=== PATIENT | female | born 1935 | race Two or more races ===

== ENCOUNTER 2018-12-16 11:54 | Inpatient (IN) | payer MEDICARE, OTHER, MEDICAID ==
[2018-12-16] MEDS: morphine 2 MG INJ IV ×2 (12:12→12:40)
[2018-12-16 12:31] LABS: ADD MAN DIFF? NO
[2018-12-16 12:33] LABS: BASOPHIL # 0.1 10^3/ul (0.0-0.1); BASOPHILS % 0.4 % (0.0-2.0); EOSINOPHILS # 0.2 10^3/ul (0.0-0.5); EOSINOPHILS % 1.1 % (0.0-7.0); HEMATOCRIT 41.6 % (37.0-47.0); HEMOGLOBIN 12.9 g/dl (12.0-16.0); LYMPHOCYTES # 1.8 10^3/ul (0.8-2.9); LYMPHOCYTES % 12.9 % (15.0-51.0); MEAN CORPUSCULAR HEMOGLOBIN 25.8 pg (29.0-33.0); MEAN CORPUSCULAR VOLUME 83.2 fl (82.0-101.0); MEAN PLATELET VOLUME 10.4 fl (7.4-10.4); MONOCYTE # 0.6 10^3/ul (0.3-0.9); MONOCYTES % 4.5 % (0.0-11.0); NEUTROPHILS % 80.2 % (39.0-77.0); PLATELET COUNT 391 10^3/UL (140-415); RED CELL DISTRIBUTION WIDTH 17.8 % (11.5-14.5)
[2018-12-16 12:33] LABS: WHITE BLOOD COUNT 13.8 10^3/ul (4.8-10.8)
[2018-12-16] MEDS: MAGNESIUM SULFATE 2 GM/50 ML 50 ML IVPB (12:34)
[2018-12-16] MEDS: ONDANSETRON 4 MG INJ IV (12:34)
[2018-12-16] MEDS: FUROSEMIDE 20 MG INJ IV (12:35)
[2018-12-16] MEDS: NITROGLYCERIN 2% 1 GM OINT PKT TD (12:35)
[2018-12-16] MEDS: ASPIRIN 81 MG TAB PO (12:35)
[2018-12-16] MEDS: DEXAMETHASONE 10 MG/ML 1 ML INJ IV (12:35)
[2018-12-16] MEDS: ALBUTEROL 0.5% (NEB) 2.5 MG/0.5 ML AMP INH (12:36)
[2018-12-16 12:51] LABS: ALANINE AMINOTRANSFERASE 22 IU/L (13-69); ALBUMIN 4.2 g/dl (3.3-4.9); ALKALINE PHOSPHATASE 77 IU/L (42-121); ANION GAP 12 (5-13); ASPARTATE AMINO TRANSFERASE 26 IU/L (15-46); BILIRUBIN,INDIRECT 0.4 mg/dl (0-1.1); BILIRUBIN,TOTAL 0.4 mg/dl (0.2-1.3); BLOOD UREA NITROGEN 15 mg/dl (7-20); CARBON DIOXIDE 27 mmol/L (21-31); CHLORIDE 102 mmol/L (97-110); CREATININE 1.09 mg/dl (0.44-1.00); GLUCOSE 238 mg/dl (70-220); POTASSIUM 4.4 mmol/L (3.5-5.1); SODIUM 141 mmol/L (135-144)
[2018-12-16 12:52] LABS: INR 0.93; PROTIME 12.6 Sec (11.9-14.9)
[2018-12-16 12:53] LABS: PARTIAL THROMBOPLASTIN TIME 22.6 Sec (23.0-35.0)
[2018-12-16 13:02] LABS: TROPONIN-I < 0.012 ng/ml (0.000-0.120)
[2018-12-16 13:22] LABS: B-TYPE NATRIURETIC PEPTIDE 1530 PG/ML (0-450)
[2018-12-16] MEDS ORDERED: GLUCAGON 1 MG INJ IM (18:30)
[2018-12-16] MEDS ORDERED: GLUCOSE GEL 15 GRAM TUBE BUCCAL (18:30)
[2018-12-16] MEDS ORDERED: GLUCOSE GEL 15 GRAM TUBE PO ×2 (18:30)
[2018-12-16] MEDS: DEXTROSE 5%-0.45% NACL 1,000 ML IV (18:30)
[2018-12-16] MEDS ORDERED: DEXTROSE 50% 50 ML SYRINGE IV ×2 (18:30)
[2018-12-16] MEDS: INSULIN ASPART [NOVOLOG] 3 ML PEN SC ×2 (18:34→21:19)
[2018-12-16 19:21] LABS: CREATINE KINASE 58 IU/L (23-200)
[2018-12-16 19:33] LABS: CK INDEX 1.1; CK-MB 0.66 ng/ml (0.0-2.4); TROPONIN-I 0.028 ng/ml (0.000-0.120)
[2018-12-16] MEDS: CILOSTAZOL 100 MG TAB PO (20:14)
[2018-12-16] MEDS ORDERED: DORZOLAMIDE/TIMOLOL 10 ML OPH BOTH EYES (21:00)
[2018-12-16] MEDS: DORZOLAMIDE/TIMOLOL/PF 0.2 ML DROPERETTE BOTH EYES (21:16)
[2018-12-16 21:43] LABS: AADO2 Arterial 187.1 mmHg (7.0-24.0); Allen Test ACCEPTAB; Arterial Base Excess 3.6 mmol/L (-3.0-3); Arterial Blood Gas Oxygen Sat 98.6 mmHG (95.0-100.0); Arterial COHb 0.3 % (0.0-3.0); Arterial Fraction of Oxyhgb 97.8 % (93.0-99.0); Arterial HCO3 27.5 mmol/L (22.0-26.0); Arterial MetHb 0.5 % (0.0-1.5); Arterial pCO2 38.9 mmhg (35-45); Blood Gas IEPAP 15/5; Blood Gas PS 10; MODE MASK - BIPAP; Site Right Radial
[2018-12-17] MEDS: INSULIN ASPART [NOVOLOG] 3 ML PEN SC ×2 (00:54→04:33)
[2018-12-17 01:34] LABS: CREATINE KINASE 50 IU/L (23-200)
[2018-12-17 01:56] LABS: CK INDEX 1.1; CK-MB 0.53 ng/ml (0.0-2.4)
[2018-12-17 05:17] LABS: ADD MAN DIFF? NO
[2018-12-17 05:21] LABS: BASOPHILS % 0.1 % (0.0-2.0); HEMOGLOBIN 11.4 g/dl (12.0-16.0); LYMPHOCYTES # 0.7 10^3/ul (0.8-2.9); LYMPHOCYTES % 7.7 % (15.0-51.0); MEAN CORPUSCULAR HEMOGLOBIN 25.5 pg (29.0-33.0); MEAN CORPUSCULAR HGB CONC 31.7 g/dl (32.0-37.0); MEAN CORPUSCULAR VOLUME 80.5 fl (82.0-101.0); MEAN PLATELET VOLUME 10.7 fl (7.4-10.4); MONOCYTE # 0.4 10^3/ul (0.3-0.9); MONOCYTES % 5.1 % (0.0-11.0); NEUTROPHIL # 7.3 10^3/ul (1.6-7.5); NEUTROPHILS % 86.5 % (39.0-77.0); PLATELET COUNT 316 10^3/UL (140-415); RED BLOOD COUNT 4.47 10^6/ul (4.20-5.40); RED CELL DISTRIBUTION WIDTH 17.9 % (11.5-14.5)
[2018-12-17 05:21] LABS: WHITE BLOOD COUNT 8.4 10^3/ul (4.8-10.8)
[2018-12-17 05:45] LABS: CHOLESTEROL 87 mg/dl (100-200)
[2018-12-17 05:45] LABS: CHOL/HDL RATIO 1.7 RATIO; HDL CHOLESTEROL 50 mg/dl (33-92); LDL CHOLESTEROL,CALCULATED 20 mg/dl; TRIGLYCERIDES 84 mg/dl (0-149)
[2018-12-17 05:49] LABS: ANION GAP 11 (5-13); BLOOD UREA NITROGEN 24 mg/dl (7-20); CALCIUM 8.4 mg/dl (8.4-10.2); CARBON DIOXIDE 30 mmol/L (21-31); CHLORIDE 96 mmol/L (97-110); CREATININE 1.29 mg/dl (0.44-1.00); GLUCOSE 146 mg/dl (70-220); POTASSIUM 4.4 mmol/L (3.5-5.1); SODIUM 137 mmol/L (135-144)
[2018-12-17 06:23] LABS: B-TYPE NATRIURETIC PEPTIDE 2920 PG/ML (0-450)
[2018-12-17] MEDS: LEVOTHYROXINE 50 MCG TAB PO (06:34)
[2018-12-17] MEDS: Insulin NOVOLOG SS MODERATE Algorithm (SS with meals and bedtime) SC ×4 (07:55→20:44)
[2018-12-17] MEDS: LOSARTAN 25 MG TAB PO (09:00)
[2018-12-17] MEDS ORDERED: FUROSEMIDE 40 MG INJ IV (09:00)
[2018-12-17] MEDS: FUROSEMIDE 40 MG INJ IV ×2 (09:00→20:31)
[2018-12-17] MEDS: ASPIRIN 325 MG TAB PO (09:51)
[2018-12-17] MEDS: DORZOLAMIDE/TIMOLOL/PF 0.2 ML DROPERETTE BOTH EYES ×2 (09:51→20:29)
[2018-12-17] MEDS: POTASSIUM CHLORIDE (SR) 8 MEQ CAP PO (09:51)
[2018-12-17] MEDS: CILOSTAZOL 100 MG TAB PO ×2 (09:51→20:29)
[2018-12-17] MEDS ORDERED: ACCUCHECK 2 HOURS AFTER FIRST BITE XX (09:55)
[2018-12-17] MEDS: DEXTROSE 5%-0.45% NACL 1,000 ML IV (10:21)
[2018-12-17] MEDS ORDERED: INSULIN ASPART [NOVOLOG] 3 ML PEN SC (11:20)
[2018-12-18] MEDS: ACCUCHECK AT 2AM (Patients on SS coverage) XX (02:02)
[2018-12-18] MEDS: LEVOTHYROXINE 50 MCG TAB PO (06:27)
[2018-12-18] MEDS: ACETAMINOPHEN 325 MG TAB PO ×2 (06:27→12:56)
[2018-12-18] MEDS: Insulin NOVOLOG SS MODERATE Algorithm (SS with meals and bedtime) SC ×4 (08:24→20:31)
[2018-12-18] MEDS: FUROSEMIDE 40 MG INJ IV (08:32)
[2018-12-18] MEDS: DORZOLAMIDE/TIMOLOL/PF 0.2 ML DROPERETTE BOTH EYES ×2 (08:32→20:16)
[2018-12-18] MEDS: POTASSIUM CHLORIDE (SR) 8 MEQ CAP PO (08:33)
[2018-12-18] MEDS: LOSARTAN 25 MG TAB PO (08:33)
[2018-12-18] MEDS: CILOSTAZOL 100 MG TAB PO ×2 (08:33→20:16)
[2018-12-18] MEDS: LIDOCAINE 1% (MPF) 5 ML VIAL (11:17)
[2018-12-18 13:18] LABS: FLUID TOTAL PROTEIN 3.5 g/dl
[2018-12-18] MEDS: HYDROCODONE/APAP (5/325) TAB PO (22:17)
[2018-12-19] MEDS: ACCUCHECK AT 2AM (Patients on SS coverage) XX (03:42)
[2018-12-19] MEDS: LEVOTHYROXINE 50 MCG TAB PO (06:31)
[2018-12-19] MEDS: Insulin NOVOLOG SS MODERATE Algorithm (SS with meals and bedtime) SC ×2 (07:44→12:00)
[2018-12-19] MEDS: CILOSTAZOL 100 MG TAB PO (08:42)
[2018-12-19] MEDS: LOSARTAN 25 MG TAB PO (08:42)
[2018-12-19] MEDS: POTASSIUM CHLORIDE (SR) 8 MEQ CAP PO (08:43)
[2018-12-19] MEDS: DORZOLAMIDE/TIMOLOL/PF 0.2 ML DROPERETTE BOTH EYES (08:43)
[2018-12-19] MEDS: ASPIRIN 325 MG TAB PO (08:43)
[2018-12-19] MEDS: HYDROCODONE/APAP (5/325) TAB PO (11:26)
== END 2018-12-19 15:49 | disposition still patient (30) | DRG 291 ==
LOC: E/R 11:54 → TEL 12-17 05:43 → ICU 13:37
PROC: 5A09357 Assistance with Respiratory Ventilation, Less than 24 Consecutive Hours, Continuous Positive Airway Pressure (ICD-10-PCS; 2018-12-16)
PROC: 0W9B3ZZ Drainage of Left Pleural Cavity, Percutaneous Approach (ICD-10-PCS; principal; 2018-12-18)
DX: I13.0 Hypertensive heart and chronic kidney disease with heart failure and stage 1 through stage 4 chronic kidney disease, or unspecified chronic kidney disease (principal); I50.23 Acute on chronic systolic (congestive) heart failure; J96.01 Acute respiratory failure with hypoxia; I16.1 Hypertensive emergency; J90 Pleural effusion, not elsewhere classified; I48.91 Unspecified atrial fibrillation; J45.909 Unspecified asthma, uncomplicated; M19.90 Unspecified osteoarthritis, unspecified site; N18.9 Chronic kidney disease, unspecified; E78.5 Hyperlipidemia, unspecified; I25.10 Atherosclerotic heart disease of native coronary artery without angina pectoris; E11.42 Type 2 diabetes mellitus with diabetic polyneuropathy; F03.90 Unspecified dementia, unspecified severity, without behavioral disturbance, psychotic disturbance, mood disturbance, and anxiety; E11.51 Type 2 diabetes mellitus with diabetic peripheral angiopathy without gangrene; E03.9 Hypothyroidism, unspecified; I42.9 Cardiomyopathy, unspecified; D64.9 Anemia, unspecified; E11.22 Type 2 diabetes mellitus with diabetic chronic kidney disease; R29.6 Repeated falls; I16.0 Hypertensive urgency; Z95.0 Presence of cardiac pacemaker; Z79.4 Long term (current) use of insulin
CPT/HCPCS: 36415; 36600; 71045; 76604; 76942; 80048; 80053; 80061; 82550; 82553; 82803; 82962; 83880; 84157; 84484; 85025; 85610; 85730; 93005; 93306; 94644; 94660; 96365; 96375; 97162; 97165; 99285-25